=== PATIENT | male | born 1975 | race Caucasian/White ===

== ENCOUNTER 2016-09-09 16:21 | Emergency (ER) | payer MEDICAID, OTHER ==
[~2016-09-09] VITALS: Ht 180.3 cm; Wt 111.1 kg
[2016-09-09 16:27] VITALS: BP_SYST 158
[2016-09-09] MEDS ORDERED: ONDANSETRON HCL 4 MG/2 ML VIAL IVP ONE (16:45)
[2016-09-09] MEDS ORDERED: MORPHINE 4 MG/ML INJ. SYRINGE IVP ONE (16:45)
[2016-09-09] MEDS ORDERED: NACL 0.9% 1,000 ML IV ONE (16:45)
[2016-09-09] MEDS ORDERED: IPRATROPIUM/ALBUTEROL SULFATE 3 ML AMPUL.NEB INH ONE (16:45)
[2016-09-09 16:55] LABS: BASOPHILS # (AUTO) 0.1 K/uL (0.0-0.2); BASOPHILS % (AUTO) 0.6 % (0.0-2.0); EOSINOPHILS # (AUTO) 0.2 K/uL (0.0-0.4); EOSINOPHILS % (AUTO) 1.4 % (0.0-4.0); HEMATOCRIT 49.2 % (36-54); HEMOGLOBIN 16.4 g/dL (14.0-18.0); LYMPHOCYTES # (AUTO) 3.1 K/uL (1.0-5.5); LYMPHOCYTES % (AUTO) 23.7 % (20.5-51.5); MEAN CORPUSCULAR HEMOGLOBIN 29 pg (27-31); MEAN CORPUSCULAR HGB CONC 33 % (32-36); MEAN CORPUSCULAR VOLUME 87 fL (79.0-98.0); MONOCYTES # (AUTO) 0.5 K/uL (0.0-1.0); MONOCYTES % (AUTO) 4.2 % (1.7-9.3); NEUTROPHILS # (AUTO) 9.1 K/uL (1.8-7.7); NEUTROPHILS % (AUTO) 70.1 % (40.0-70.0); PLATELET COUNT (AUTO) 340 K/uL (130-430); RED BLOOD CELL COUNT(AUTO) 5.65 MIL/uL (4.2-6.2)
[2016-09-09 16:56] LABS: BILIRUBIN,URINE NEGATIVE (NEGATIVE); BLOOD, URINE NEGATIVE (NEGATIVE); CLARITY/URINE CLEAR (CLEAR); COLOR,URINE YELLOW (YELLOW); GLUCOSE,URINE NEGATIVE (NEGATIVE); KETONES,URINE NEGATIVE (NEGATIVE); LEUKOCYTE ESTERASE ,URINE NEGATIVE (NEGATIVE); NITRITE, URINE NEGATIVE (NEGATIVE); PROTEIN URINE NEGATIVE (NEGATIVE); UROBILINOGEN,URINE 0.2 (0.2-1.0)
[2016-09-09 17:00] LABS: CREATININE 1.07 mg/dL (0.55-1.30)
[2016-09-09 17:05] LABS: ALBUMIN 4.2 g/dL (3.4-4.8); TOTAL BILIRUBIN 0.4 mg/dL (0.0-1.0); TOTAL PROTEIN, SERUM 7.8 g/dL (6.4-8.3)
[2016-09-09] MEDS ORDERED: MAG HYDROX/AL HYDROX/SIMETH 30 ML, LIDOCAINE VISCOUS 2% 15ML (PO) 10 ML, BELLADONNA ALK... PO ONE ×3 (17:45)
[2016-09-09 18:27] VITALS: BP_SYST 142
== END 2016-09-09 18:27 | disposition home or self-care (01) ==
LOC: SED 16:21
DX: K52.9 Noninfective gastroenteritis and colitis, unspecified (principal); J06.9 Acute upper respiratory infection, unspecified; E66.9 Obesity, unspecified; Z68.34 Body mass index [BMI] 34.0-34.9, adult
CPT/HCPCS: 36415; 80053; 81003; 83605; 83690; 85025; 86710; 87040; 94640; 96361; 96374; 96375; 99284; J2001; J2270; J2405; J7030

== ENCOUNTER 2018-12-14 13:12 | Emergency (ER) | payer OTHER ==
[~2018-12-14] VITALS: Ht 182.9 cm; Wt 111.1 kg
[2018-12-14 13:25] VITALS: BP_SYST 148
--- NOTE | 2018-12-14 13:31 | NUR ---
Ambulatory to bed 4
--- NOTE | 2018-12-14 13:39 | NUR ---
Patient is awake, alert, and oriented x4. Patient is complaining of lower back pain since this morning. Patient reports that it is a chronic condition and that he has an order for an MRI at a later time. Patient states he just could not stand it today and that he is seeking pain relief.
[2018-12-14] MEDS ORDERED: MORPHINE 4 MG/ML INJ. SYRINGE IM ONE (14:00)
[2018-12-14] MEDS ORDERED: CYCLOBENZAPRINE HCL 10 MG TABLET (FLEXERIL) PO ONE (14:00)
--- NOTE | 2018-12-14 14:00 | NUR ---
JAYLIN Sexton at bedside examining patient.
--- NOTE | 2018-12-14 14:39 | NUR ---
Patient given written and verbal discharge instructions and verbalizes understanding. ER Dr. Sexton discussed with patient the results and treatment provided. Patient in stable condition. ID arm band removed. Rx of [place] and Ibuprofen given. Patient educated on pain management and to follow up with PMD. Pain Scale 3/10 and tolerable. Opportunity for questions provided and answered. Medication side effect fact sheet provided.
[2018-12-14 14:42] VITALS: BP_SYST 145
== END 2018-12-14 14:38 | disposition home or self-care (01) ==
LOC: SED 13:12
DX: G89.29 Other chronic pain (principal); M54.9 Dorsalgia, unspecified
CPT/HCPCS: 96372; 99283; J2270

== ENCOUNTER 2019-02-14 07:01 | Emergency (ER) | payer OTHER ==
[~2019-02-14] VITALS: Ht 180.3 cm; Wt 111.1 kg
[2019-02-14 07:11] VITALS: BP_SYST 153
--- NOTE | 2019-02-14 07:20 | NUR ---
Patient to ER bed 1 to gown for evaluation. Side rails up. Report given to Christian NAYAK.
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
--- NOTE | 2019-02-14 07:23 | NUR ---
Dr. Melchor at bedside to assess pt.
[2019-02-14] MEDS ORDERED: MORPHINE SULFATE 10 MG/ML VIAL IVP ONE (08:00)
[2019-02-14] MEDS ORDERED: ONDANSETRON HCL 4 MG/2 ML VIAL IVP ONE (08:00)
[2019-02-14 08:21] LABS: BASOPHILS % (AUTO) 0.4 % (0.0-2.0); EOSINOPHILS # (AUTO) 0.1 K/uL (0.0-0.4); EOSINOPHILS % (AUTO) 0.6 % (0.0-4.0); HEMATOCRIT 48.4 % (36-54); HEMOGLOBIN 16.8 g/dL (14.0-18.0); LYMPHOCYTES # (AUTO) 1.7 K/uL (1.0-5.5); LYMPHOCYTES % (AUTO) 18.5 % (20.5-51.5); MEAN CORPUSCULAR HEMOGLOBIN 31 pg (27-31); MEAN CORPUSCULAR HGB CONC 35 % (32-36); MEAN CORPUSCULAR VOLUME 90 fL (79.0-98.0); MONOCYTES # (AUTO) 0.5 K/uL (0.0-1.0); MONOCYTES % (AUTO) 5.5 % (1.7-9.3); NEUTROPHILS # (AUTO) 6.7 K/uL (1.8-7.7); PLATELET COUNT (AUTO) 336 K/uL (130-430); RED CELL DISTRIBUTION WIDTH 12.6 % (9.0-15.0); WHITE BLOOD COUNT (AUTO) 8.9 K/uL (4.8-10.8)
[2019-02-14 08:33] LABS: CALCIUM 9.3 mg/dL (8.4-11.0); CHLORIDE 102 mmol/L (98-107); CREATININE 0.87 mg/dL (0.55-1.30); GLUCOSE 130 mg/dL (70-99); POTASSIUM 3.9 mmol/L (3.5-5.1); SODIUM SERUM 132 mmol/L (136-145); UREA NITROGEN, BLOOD 8 mg/dL (8-21)
[2019-02-14 08:35] LABS: ANION GAP < 3 (5-15); GFR AFRICAN AMERICAN 124 mL/min (>90)
[2019-02-14 08:37] LABS: ALANINE AMINOTRANSFERASE 40 U/L (12-78); ALBUMIN 4.3 g/dL (3.4-4.8); ASPARTATE AMINOTRANSFERASE 18 U/L (10-37); LIPASE 124 U/L (73-393); PROTHROMBIN TIME 10.5 SECS (9.5-12.5); TOTAL BILIRUBIN 0.6 mg/dL (0.0-1.0)
[2019-02-14] MEDS ORDERED: IOHEXOL 100 ML IV ONE (08:59)
[2019-02-14] MEDS: MORPHINE 2 MG/ML INJ. SYRINGE IVP ONE ×2 (09:51→09:52)
[2019-02-14] MEDS: ONDANSETRON HCL 4 MG/2 ML VIAL IVP ONE (09:51)
--- NOTE | 2019-02-14 10:19 | NUR ---
Pt resting in bed comfortably, VSS: BP 121/74 HR78, R 17, 99 % O2 sat RA. Will continue to monitor.
[2019-02-14 10:29] LABS: BILIRUBIN,URINE NEGATIVE (NEGATIVE); BLOOD, URINE NEGATIVE (NEGATIVE); CLARITY/URINE CLEAR (CLEAR); COLOR,URINE YELLOW (YELLOW); GLUCOSE,URINE NEGATIVE (NEGATIVE); KETONES,URINE NEGATIVE (NEGATIVE); LEUKOCYTE ESTERASE ,URINE NEGATIVE (NEGATIVE); NITRITE, URINE NEGATIVE (NEGATIVE); PROTEIN URINE NEGATIVE (NEGATIVE); UROBILINOGEN,URINE 0.2 (0.2-1.0)
[2019-02-14 10:49] VITALS: BP_SYST 131
--- NOTE | 2019-02-14 10:49 | NUR ---
Patient given written and verbal discharge instructions and verbalizes understanding. ER MD discussed with patient the results and treatment provided. Patient in stable condition. ID arm band removed. IV catheter removed intact and dressing applied, no active bleeding.Rx of [place] 5-325 mg # 20, Motrin 600mg, zofran 4mg ODT given. Patient educated on pain management and to follow up with PMD. Pain Scale 4/10.Opportunity for questions provided and answered. Medication side effect fact sheet provided.
== END 2019-02-14 10:49 | disposition home or self-care (01) ==
LOC: SED 07:01
DX: M54.5 Low back pain (principal); M54.6 Pain in thoracic spine
CPT/HCPCS: 36415; 71260; 72128; 72132; 74177; 80053; 81003; 83690; 84484; 85025; 85610; 85730; 93005; 96374; 96375; 96376; 99284; J2270 ×2; J2405; Q9967

== ENCOUNTER 2023-01-08 15:25 | Emergency (ER) | payer MEDICAID, OTHER ==
[~2023-01-08] VITALS: Ht 180.3 cm; Wt 111.1 kg
[2023-01-08 15:52] LABS: BASOPHILS # (AUTO) 0.1 K/uL (0.0-0.2); BASOPHILS % (AUTO) 0.4 % (0.0-2.0); EOSINOPHILS # (AUTO) 0.1 K/uL (0.0-0.4); EOSINOPHILS % (AUTO) 0.7 % (0.0-4.0); HEMATOCRIT 45.8 % (36-54); HEMOGLOBIN 15.6 g/dL (14.0-18.0); LYMPHOCYTES % (AUTO) 22.2 % (20.5-51.5); MEAN CORPUSCULAR HEMOGLOBIN 30 pg (27-31); MEAN CORPUSCULAR HGB CONC 34 % (32-36); MEAN CORPUSCULAR VOLUME 87 fL (79.0-98.0); MONOCYTES # (AUTO) 0.7 K/uL (0.0-1.0); MONOCYTES % (AUTO) 5.3 % (1.7-9.3); NEUTROPHILS # (AUTO) 9.5 K/uL (1.8-7.7); NEUTROPHILS % (AUTO) 71.4 % (40.0-70.0); PLATELET COUNT (AUTO) 352 K/uL (130-430); RED BLOOD CELL COUNT(AUTO) 5.26 MIL/uL (4.2-6.2); RED CELL DISTRIBUTION WIDTH 12.8 % (9.0-15.0); WHITE BLOOD COUNT (AUTO) 13.4 K/uL (4.8-10.8)
[2023-01-08 15:55] VITALS: BP_SYST 167; PULSE 90; RESP 20; TEMP 98.3; O2SAT 98
[2023-01-08 15:58] LABS: ERYTHROCYTE SEDIMENTATION RATE 1 MM/HR (0-15)
[2023-01-08 16:03] LABS: CALCIUM 8.8 mg/dL (8.4-11.0); POTASSIUM 4.1 mmol/L (3.5-5.1)
[2023-01-08 16:18] LABS: ALBUMIN 4.2 g/dL (3.4-4.8); TOTAL BILIRUBIN 0.6 mg/dL (0.0-1.0); TOTAL PROTEIN, SERUM 7.6 g/dL (6.4-8.3); URIC ACID 5.2 mg/dL (2.4-7.0)
[2023-01-08] MEDS ORDERED: KETOROLAC TROMETHAMINE 60 MG/2 ML VIAL IM ONE (16:30)
[2023-01-08] MEDS ORDERED: HYDROcodone/ACETAMIN 10-325 MG TAB PO ONE (16:30)
[2023-01-08] MEDS ORDERED: IBUP-1971 PO (16:39)
[2023-01-08] MEDS ORDERED: HYDR-3927 PO (16:39)
== END 2023-01-08 16:55 | disposition home or self-care (01) ==
LOC: SED 15:25
DX: M25.561 Pain in right knee (principal); Z79.899 Other long term (current) drug therapy
CPT/HCPCS: 99284; 80053; 84550; 85025; 85651; 36415; 73560; 96372; 82397; J1885